=== PATIENT | female | born 1945 | race Caucasian/White ===

== ENCOUNTER 2019-12-06 17:43 | Inpatient (IN) ==
[2019-12-06 21:10] LABS: Prothrombin Time 11.7 Seconds (9.4-12.1)
[2019-12-06 21:12] LABS: Activated Partial Thrombo Time 32.4 Seconds (26.0-36.0)
[2019-12-06 21:45] LABS: Basophils # 0.1 K/mcL (0.0-0.2); Basophils % 0.6 %; Eosinophils # 0.1 K/mcL (0.0-0.6); Eosinophils % 1.2 %; Hematocrit 25.7 % (35.3-44.9); Hemoglobin 8.3 g/dL (11.5-15.4); Immature Granulocytes % 0.2 % (0-4); Lymphocytes % 21.7 %; Mean Corpuscular HGB Conc 32.3 g/dL (31.6-35.5); Mean Corpuscular Hemoglobin 30.6 pg (28.0-33.3); Mean Platelet Volume 9.5 fL (9.4-12.4); Monocytes # 0.8 K/mcL (0.0-1.3); Monocytes % 8.8 %; Neutrophils # 6.3 K/mcL (1.6-8.9); Platelet Count 264 K/mcL (140-400); Red Blood Count 2.71 M/mcL (3.82-4.97); Red Cell Distribution Width 12.3 % (11.5-14.5); Segmented Neutrophils % 67.5 %; White Blood Count 9.4 K/mcL (4.3-11.1)
[2019-12-06 21:46] LABS: Mean Corpuscular Volume 94.8 fL (83.0-100.0)
[2019-12-06] MEDS: Pantoprazole 40 MG VIAL IVP SCH (22:12)
[2019-12-07] MEDS ORDERED: 0.9 % Sodium Chloride 250 ML ONE (03:52)
[2019-12-07] MEDS: Pantoprazole 40 MG VIAL IVP SCH ×2 (06:08→17:19)
[2019-12-07] MEDS: amLODIPine 5 MG TABLET PO SCH (08:12)
[2019-12-07 09:34] LABS: Hematocrit 29.2 % (35.3-44.9); Hemoglobin 9.3 g/dL (11.5-15.4)
[2019-12-07 16:25] LABS: Hematocrit 30.8 % (35.3-44.9); Hemoglobin 9.8 g/dL (11.5-15.4)
[2019-12-08 03:13] LABS: Basophils # 0.1 K/mcL (0.0-0.2); Basophils % 0.4 %; Eosinophils # 0.2 K/mcL (0.0-0.6); Eosinophils % 1.5 %; Hematocrit 25.8 % (35.3-44.9); Hemoglobin 8.3 g/dL (11.5-15.4); Immature Granulocytes % 0.2 % (0-4); Lymphocytes # 2.5 K/mcL (0.6-4.6); Lymphocytes % 21.2 %; Mean Corpuscular HGB Conc 32.2 g/dL (31.6-35.5); Mean Corpuscular Volume 93.1 fL (83.0-100.0); Mean Platelet Volume 9.7 fL (9.4-12.4); Monocytes # 1.1 K/mcL (0.0-1.3); Monocytes % 9.1 %; Neutrophils # 7.8 K/mcL (1.6-8.9); Platelet Count 246 K/mcL (140-400); Red Blood Count 2.77 M/mcL (3.82-4.97); Red Cell Distribution Width 12.4 % (11.5-14.5); Segmented Neutrophils % 67.6 %; White Blood Count 11.6 K/mcL (4.3-11.1)
[2019-12-08 03:28] LABS: Calcium 8.7 mg/dL (8.6-10.3); Potassium 4.1 mEq/L (3.5-5.1)
[2019-12-08] MEDS: Pantoprazole 40 MG VIAL IVP SCH (06:35)
[2019-12-08] MEDS ORDERED: Febuxostat [Uloric] 40 MG PO SCH (09:00)
[2019-12-08] MEDS ORDERED: Mirabegron [Myrbetriq] 50 MG PO SCH (09:00)
[2019-12-08] MEDS ORDERED: Cholestyramine 4 GM POWD.PACK PO SCH (09:00)
[2019-12-08] MEDS: amLODIPine 5 MG TABLET PO SCH (09:18)
[2019-12-08] MEDS ORDERED: Lidocaine -MPF 2% 2 ML VIAL ONE (09:30)
[2019-12-08] MEDS ORDERED: *HR* PHENYLEPHRINE 1,000 MCG/10 ML SYRINGE IVP ONE (09:30)
[2019-12-08] MEDS ORDERED: Simethicone 40 MG/0.6 ML MLS IR ONE (10:07)
[2019-12-08 11:45] VITALS: BP 131/69
== END 2019-12-08 14:38 | disposition home or self-care (01) | DRG 378 ==
LOC: 2ANU → SUATTDRO 19:43
PROVIDERS: ADMIT Internal Medicine; ATTEND Family Medicine

== ENCOUNTER 2021-03-16 15:38 | Inpatient (IN) ==
[2021-03-16] MEDS ORDERED: Naloxone 0.4 MG/ML INJ IVP PRN (22:13)
[2021-03-16] MEDS ORDERED: Melatonin 3 MG TABLET PO PRN (22:13)
[2021-03-16] MEDS ORDERED: 0.9 % Sodium Chloride 1,000 ML IVC SCH ×2 (22:45→23:12)
[2021-03-16 22:55] LABS: VBG Ionized Calcium 1.38 mmol/L (1.15-1.35)
[2021-03-16 23:13] LABS: Albumin 3.8 g/dL (3.5-5.7); Calcium 10.7 mg/dL (8.6-10.3); Phosphorous 3.6 mg/dL (2.7-4.5); Potassium 5.7 mEq/L (3.5-5.1)
[2021-03-16] MEDS ORDERED: Acetaminophen 325 MG TABLET PO PRN (23:22)
[2021-03-17] MEDS: SODIUM ZIRCONIUM CYCLOSILICATE 5 GM POWD.PACK PO SCH ×2 (00:34→09:16)
[2021-03-17 05:33] LABS: Hematocrit 34.3 % (35.3-44.9); Mean Corpuscular HGB Conc 32.1 g/dL (31.6-35.5); Mean Corpuscular Hemoglobin 30.6 pg (28.0-33.3); Mean Corpuscular Volume 95.5 fL (83.0-100.0); Mean Platelet Volume 9.6 fL (9.4-12.4); Platelet Count 295 K/mcL (140-400); Red Blood Count 3.59 M/mcL (3.82-4.97); White Blood Count 9.9 K/mcL (4.3-11.1)
[2021-03-17 05:47] LABS: Albumin 3.7 g/dL (3.5-5.7); Calcium 9.9 mg/dL (8.6-10.3); Magnesium 2.7 mg/dL (1.6-2.6); Phosphorous 4.4 mg/dL (2.7-4.5); Potassium 5.3 mEq/L (3.5-5.1)
[2021-03-17] MEDS: *HR* Heparin 5,000 UNIT/ML VIAL SQ SCH ×2 (06:21→16:26)
[2021-03-17] MEDS ORDERED: Ringers Solution, Lactated 1,000 ML IVC SCH (08:00)
[2021-03-17] MEDS ORDERED: Insulin Human Regular 10 UNIT in 0.9 % Sodium Chloride 10 ML IV ONE (08:01)
[2021-03-17] MEDS ORDERED: *HR* Dextrose 50 % in Water (Syg) 50 ML SYRINGE IVP ONE (08:01)
[2021-03-17] MEDS: Calcium Gluconate 1gm/50mL 1 GM/50 ML BAG IVPB SCH ×2 (09:15→10:28)
[2021-03-17] MEDS: rOPINIRole 0.25 MG TABLET PO SCH ×2 (09:17→20:36)
[2021-03-17] MEDS: Aspirin Enteric Coated 81 MG Tablet PO SCH (09:18)
[2021-03-17] MEDS: (Omega-3 Fatty Acids [Fish Oil] 300 MG Capsule) PO SCH (09:18)
[2021-03-17 09:26] LABS: Uric Acid 5.3 mg/dL (2.3-7.6)
[2021-03-17] MEDS: Sodium Bicarbonate 50 MEQ in 0.45 % Sodium Chloride 1,000 ML IVC SCH ×2 (11:42→20:36)
[2021-03-17] MEDS ORDERED: Ondansetron 4 MG/2 ML VIAL IVP PRN (11:50)
[2021-03-17 12:10] LABS: Complement C3 120 mg/dL (87-200)
[2021-03-17] MEDS ORDERED: Simethicone 80 MG TAB.CHEW PO PRN (16:31)
[2021-03-18] MEDS: *HR* Heparin 5,000 UNIT/ML VIAL SQ SCH ×2 (05:52→16:38)
[2021-03-18 07:11] LABS: Basophils % 0.6 %; Eosinophils # 0.2 K/mcL (0.0-0.6); Eosinophils % 3.8 %; Hematocrit 31.5 % (35.3-44.9); Hemoglobin 10.2 g/dL (11.5-15.4); Immature Granulocytes % 0.2 % (0-4); Lymphocytes # 2.4 K/mcL (0.6-4.6); Lymphocytes % 37.5 %; Mean Corpuscular HGB Conc 32.4 g/dL (31.6-35.5); Mean Corpuscular Hemoglobin 30.4 pg (28.0-33.3); Mean Corpuscular Volume 93.8 fL (83.0-100.0); Mean Platelet Volume 9.9 fL (9.4-12.4); Monocytes # 0.5 K/mcL (0.0-1.3); Monocytes % 8.3 %; Neutrophils # 3.2 K/mcL (1.6-8.9); Platelet Count 255 K/mcL (140-400); Red Blood Count 3.36 M/mcL (3.82-4.97); Red Cell Distribution Width 12.9 % (11.5-14.5); Segmented Neutrophils % 49.6 %; White Blood Count 6.4 K/mcL (4.3-11.1)
[2021-03-18 08:28] LABS: Albumin 3.5 g/dL (3.5-5.7); Albumin/Globulin Ratio 1.7 (1.1-2.2); Bilirubin,Direct 0.1 mg/dL (0.0-0.2); Bilirubin,Indirect 0.3 mg/dL (0.0-1.0); Bilirubin,Total 0.4 mg/dL (0.3-1.0); Calcium 9.1 mg/dL (8.6-10.3); Globulin 2.1 g/dL (2.4-3.5); Phosphorous 3.3 mg/dL (2.7-4.5); Potassium 4.3 mEq/L (3.5-5.1); Total Protein 5.6 g/dL (6.4-8.9)
[2021-03-18] MEDS: Aspirin Enteric Coated 81 MG Tablet PO SCH (09:11)
[2021-03-18] MEDS: rOPINIRole 0.25 MG TABLET PO SCH ×2 (09:11→19:45)
[2021-03-18] MEDS: Sodium Bicarbonate 50 MEQ in 0.45 % Sodium Chloride 1,000 ML IVC SCH ×2 (09:12→19:48)
[2021-03-18] MEDS: (Omega-3 Fatty Acids [Fish Oil] 300 MG Capsule) PO SCH (09:13)
[2021-03-18 10:35] LABS: Bilirubin,Urine Negative (Negative); Blood,Urine Negative (Negative); Clarity,Urine Clear (Clear); Color,Urine Colorless (Yellow); Glucose,Urine (UA) Normal (Normal); Ketones,Urine Negative (Negative); Leukocyte Esterase,Urine Negative (Negative); Nitrite,Urine Negative (Negative); PH,Urine 5.5 pH Units (5.0-8.0); Protein,Urine Negative (Neg-Trace); Urobilinogen,Urine Normal (Normal)
[2021-03-18 10:46] LABS: Sodium, Urine 40.1 mEq/L
[2021-03-19] MEDS: *HR* Heparin 5,000 UNIT/ML VIAL SQ SCH (05:04)
[2021-03-19 06:20] LABS: Basophils % 0.6 %; Eosinophils # 0.2 K/mcL (0.0-0.6); Eosinophils % 3.5 %; Hematocrit 29.3 % (35.3-44.9); Hemoglobin 9.3 g/dL (11.5-15.4); Immature Granulocytes % 0.4 % (0-4); Lymphocytes # 1.7 K/mcL (0.6-4.6); Lymphocytes % 32.1 %; Mean Corpuscular HGB Conc 31.7 g/dL (31.6-35.5); Mean Corpuscular Hemoglobin 29.6 pg (28.0-33.3); Mean Corpuscular Volume 93.3 fL (83.0-100.0); Mean Platelet Volume 10.2 fL (9.4-12.4); Monocytes # 0.6 K/mcL (0.0-1.3); Monocytes % 10.9 %; Neutrophils # 2.9 K/mcL (1.6-8.9); Platelet Count 204 K/mcL (140-400); Red Blood Count 3.14 M/mcL (3.82-4.97); Red Cell Distribution Width 12.8 % (11.5-14.5); Segmented Neutrophils % 52.5 %; White Blood Count 5.4 K/mcL (4.3-11.1)
[2021-03-19 06:28] LABS: Calcium 8.7 mg/dL (8.6-10.3); Magnesium 1.7 mg/dL (1.6-2.6); Potassium 3.8 mEq/L (3.5-5.1)
[2021-03-19] MEDS: Sodium Bicarbonate 50 MEQ in 0.45 % Sodium Chloride 1,000 ML IVC SCH (08:19)
[2021-03-19] MEDS: Aspirin Enteric Coated 81 MG Tablet PO SCH (08:19)
[2021-03-19] MEDS ORDERED: 0.9 % Sodium Chloride 1,000 ML IVC SCH (09:15)
[2021-03-19 10:23] VITALS: BP 155/73; PULSE 56; TEMP 97.5; O2SAT 97
[2021-03-19] MEDS ORDERED: cilostazoL 100 MG TABLET PO SCH (21:00)
[2021-03-20 00:11] LABS: Lambda Qnt Free Light Chains 31.81 mg/L (5.71-26.30)
[2021-03-20 10:45] LABS: ANA IgG by ELISA NONE DETECTED (None Detected)
[2021-03-20 10:46] LABS: Kappa Qnt Free Light Chains 55.23 mg/L (3.30-19.40)
[2021-03-21 17:57] LABS: Alpha 2 Globulin (PEP) 0.88 g/dL (0.48-1.05); Beta Globulin (PEP) 0.74 g/dL (0.48-1.10)
[2021-03-21 23:54] LABS: ANCA IFA Titer <1:20 (<1:20)
[2021-03-22 11:43] LABS: ANCA IFA Pattern NONE DETECTED (None Detected); IFE Reflexed NOT DONE; Serine Protease-3 Antibody 1 AU/mL (0-19)
== END 2021-03-19 13:55 | disposition home or self-care (01) | DRG 683 ==
LOC: 2ANU → SUATTDRO 22:15
PROVIDERS: ADMIT Internal Medicine; ATTEND Pharmacist